=== PATIENT | female | born 1995 | race Caucasian/White ===

== ENCOUNTER 2018-08-01 12:12 | Observation (INO) ==
[2018-08-01] MEDS ORDERED: *HR* FentaNYL (PF) 100 MCG/2 ML VIAL IVP ONE ×2 (12:44→14:06)
[2018-08-01] MEDS ORDERED: Ondansetron 4 MG/2 ML VIAL IVP ONE (12:45)
--- NOTE | 2018-08-01 12:49 | Emergency Department Note ---
Disposition Clinical Impression: Acute appendicitis Qualifiers: Acute appendicitis type: unspecified acute appendicitis type Qualified Code(s): K35.80 - Unspecified acute appendicitis Disposition: Still a Patient Condition: Good Time of Disposition: 18:04 Abdominal Pain HPI - General Chief Complaint: ED Abdominal Pain Stated Complaint: ABD pain Time Seen by Provider: 08/01/18 12:18 Source: patient Nursing Notes Reviewed: Yes Vital Signs Reviewed: Yes - History of Present Illness HPI Narrative: Chief complaint of diffuse abdominal pain for 1 day. Has not progressed since onset last evening, no mitigating factors, positive nausea and vomiting but no diarrhea, no chest pain or shortness of breath, no sick contacts, this has never happened before, no previous abdominal surgeries or pregnancies. Pain Scale: 6 - Related Data Home Medications Medication Instructions Recorded Confirmed No Known Home Drugs 08/01/18 08/01/18 Allergies Allergy/AdvReac Type Severity Reaction Status Date / Time No Known Allergies Allergy Verified 08/01/18 16:01 All systems ED: reviewed and negative except as stated. Review of Systems: As Per HPI Abdominal Pain PMH - Past Medical History Medical history: Reports: no medical history Female Surgical History: Reports: no surgical history Psychiatric history: Reports: no psych history - Social History Smoking status: Never smoker Alcohol use: Reports: none Drug use: Reports: none Physical Exam - General Limitations: no limitations General appearance: alert - Eye Eye exam: Present: normal appearance, PERRL - Chest Chest inspection: Present: normal inspection, symmetric chest wall rise - Respiratory Respiratory exam: Present: normal lung sounds bilaterally - Cardiovascular Cardiovascular exam: Present: normal rhythm, tachycardia, normal heart sounds - Abdominal Exam Abdominal exam: Present: soft, tenderness, tenderness at McBurney's Point. Absent: Antonio's sign, scar Abdominal tenderness: Present: RLQ, diffuse - Extremities Exam Extremities exam: Present: normal inspection - Neurological Exam Neurological exam: Present: alert, oriented X3 - Skin Skin exam: Present: warm, dry Course Course Narrative: Patient with the chief complaint of abdominal pain, nausea, vomiting. Immediate concern is for gynecological or gastrointestinal etiology. We will order urine test. If that is negative we will proceed with CT of the abdomen to assess for possible appendicitis or other acute intestinal pathology. If urine is positive we will proceed with ultrasound of the abdomen. We are also ordering CBC, BMP and fentanyl and Zofran for pain and nausea control. Vital Signs Temperature 98.6 F 08/01/18 12:15 Pulse Rate 105 08/01/18 12:15 Respiratory Rate 18 08/01/18 12:15 Blood Pressure 123/77 08/01/18 12:15 O2 Sat by Pulse Oximetry 97 08/01/18 12:15 Temperature 98.6 F 08/01/18 12:15 Pulse Rate 92 08/01/18 16:03 Respiratory Rate 18 08/01/18 16:03 Blood Pressure 100/64 08/01/18 16:03 O2 Sat by Pulse Oximetry 98 08/01/18 16:03 Oxygen Delivery Oxygen Delivery Room Air Abdominal Pain - MDM Narrative Medical decision making narrative: Labs significant for urinary tract infection, otherwise negative. CT abdomen and pelvis demonstrating acute uncomplicated cholecystitis. This was discussed with the surgeon rehabilitation caseworker who came down to evaluate the patient. Dr. Bosch came down and evaluated the patient. His documentation indicates he will take the patient for surgery today. Patient is in stable condition and being managed by surgical team. - Lab Data Lab results reviewed: Yes I reviewed the patient's lab results. Result diagrams: 08/01/18 12:40 08/01/18 12:40 Lab Results 08/01/18 08/01/18 08/01/18 Range/Units 12:40 12:40 12:44 WBC 10.9 (4.3-11.1) K/mcL RBC 4.43 (3.82-4.97) M/mcL Hgb 14.4 (11.5-15.4) g/dL Hct 41.5 (35.3-44.9) % MCV 93.7 (83.0-100.0) fL MCH 32.5 (28.0-33.3) pg MCHC 34.7 (31.6-35.5) g/dL RDW 12.1 (11.5-14.5) % Plt Count 315 (140-400) K/mcL MPV 8.8 L (9.4-12.4) fL Immature Gran % 0.4 (0-4) % Seg Neutrophils % 78.9 % Lymphocytes % 15.6 % Monocytes % 4.5 % Eosinophils % 0.1 % Basophils % 0.5 % Neutrophils # 8.6 (1.6-8.9) K/mcL Lymphocytes # 1.7 (0.6-4.6) K/mcL Monocytes # 0.5 (0.0-1.3) K/mcL Eosinophils # 0.0 (0.0-0.6) K/mcL Basophils # 0.1 (0.0-0.2) K/mcL PT 13.4 H (9.4-12.1) Seconds INR 1.2 Sodium 135 L (136-145) mEq/L Potassium 3.5 (3.5-5.1) mEq/L Chloride 100 (98-107) mEq/L Carbon Dioxide 23 (23-29) mEq/L BUN 9 (6-20) mg/dL Creatinine 0.62 (0.60-1.20) mg/dL Est GFR ( Amer) > 60 (> 60) Est GFR (Non-Af Amer) > 60 (> 60) BUN/Creatinine Ratio 15 (6-26) Glucose 81 (70-105) mg/dL Calculated Osmolality 278 L (280-300) Calcium 9.6 (8.6-10.3) mg/dL Total Bilirubin 1.0 (0.3-1.0) mg/dL Direct Bilirubin 0.2 (0.0-0.2) mg/dL Indirect Bilirubin 0.8 (0.0-1.2) mg/dL AST 18 (13-39) Units/L ALT 16 (7-52) Units/L Alkaline Phosphatase 87 (34-104) Units/L Serum Total Protein 8.1 (6.4-8.9) g/dL Albumin 4.7 (3.5-5.7) g/dL Globulin 3.4 (2.4-3.5) g/dL Albumin/Globulin Ratio 1.4 (1.1-2.2) Urine Color (Yellow) Urine Clarity (Clear) Urine pH (5.0-8.0) pH Units Ur Specific [place] (1.010-1.025) Urine Protein (Neg-Trace) mg/dL Urine Glucose (UA) (Normal) mg/dL Urine Ketones (Negative) mg/dL Urine Blood (Negative) Urine Nitrite (Negative) Urine Bilirubin (Negative) Urine Urobilinogen (Normal) mg/dL Ur Leukocyte Esterase (Negative) Urine Microscopic RBC (0-3) per hpf Urine Microscopic WBC (0-3) per hpf Ur Squamous Epith Cells (None-Few) per lpf Urine Bacteria (None-Few) per hpf Ur Culture Indicated? (NO) Urine Test (Negative) 08/01/18 08/01/18 Range/Units 13:00 13:03 WBC (4.3-11.1) K/mcL RBC (3.82-4.97) M/mcL Hgb (11.5-15.4) g/dL Hct (35.3-44.9) % MCV (83.0-100.0) fL MCH (28.0-33.3) pg MCHC (31.6-35.5) g/dL RDW (11.5-14.5) % Plt Count (140-400) K/mcL MPV (9.4-12.4) fL Immature Gran % (0-4) % Seg Neutrophils % % Lymphocytes % % Monocytes % % Eosinophils % % Basophils % % Neutrophils # (1.6-8.9) K/mcL Lymphocytes # (0.6-4.6) K/mcL Monocytes # (0.0-1.3) K/mcL Eosinophils # (0.0-0.6) K/mcL Basophils # (0.0-0.2) K/mcL PT (9.4-12.1) Seconds INR Sodium (136-145) mEq/L Potassium (3.5-5.1) mEq/L Chloride (98-107) mEq/L Carbon Dioxide (23-29) mEq/L BUN (6-20) mg/dL Creatinine (0.60-1.20) mg/dL Est GFR ( Amer) (> 60) Est GFR (Non-Af Amer) (> 60) BUN/Creatinine Ratio (6-26) Glucose (70-105) mg/dL Calculated Osmolality (280-300) Calcium (8.6-10.3) mg/dL Total Bilirubin (0.3-1.0) mg/dL Direct Bilirubin (0.0-0.2) mg/dL Indirect Bilirubin (0.0-1.2) mg/dL AST (13-39) Units/L ALT (7-52) Units/L Alkaline Phosphatase (34-104) Units/L Serum Total Protein (6.4-8.9) g/dL Albumin (3.5-5.7) g/dL Globulin (2.4-3.5) g/dL Albumin/Globulin Ratio (1.1-2.2) Urine Color Dark Yellow (Yellow) Urine Clarity Cloudy A (Clear) Urine pH 5.5 (5.0-8.0) pH Units Ur Specific [place] > 1.030 H (1.010-1.025) Urine Protein 30 H (Neg-Trace) mg/dL Urine Glucose (UA) Normal (Normal) mg/dL Urine Ketones >=160 H (Negative) mg/dL Urine Blood Negative (Negative) Urine Nitrite Negative (Negative) Urine Bilirubin Small H (Negative) Urine Urobilinogen Normal (Normal) mg/dL Ur Leukocyte Esterase Negative (Negative) Urine Microscopic RBC 15-30 H (0-3) per hpf Urine Microscopic WBC 5-15 H (0-3) per hpf Ur Squamous Epith Cells Many H (None-Few) per lpf Urine Bacteria Moderate H (None-Few) per hpf Ur Culture Indicated? YES A (NO) Urine Test Negative (Negative) - Radiology Data Radiology results reviewed: Yes I reviewed the patient's radiology results. Abdomen/Pelvis CT 08/01/18 12:44 IMPRESSION: 1. Acute uncomplicated appendicitis. D/ / Galindo Wilson MD / Galindo Wilson MD Interpreting Provider: Galindo Wilson MD Attestation Statement - Attestation Attestation: I, Hiro Prasad DO, examined this patient [id number] and my medical decision-making was reviewed with Brett Garcia PGY-1, Resident Physician. I agree with the documented findings, disposition and treatment plan as described except to the extent set forth below. I personally supervised and was present for the gerber/critical portions of the procedures completed by the resident documented below. Please see my progress notes for details.
[2018-08-01 13:06] LABS: Basophils # 0.1 K/mcL (0.0-0.2); Basophils % 0.5 %; Eosinophils % 0.1 %; Hematocrit 41.5 % (35.3-44.9); Hemoglobin 14.4 g/dL (11.5-15.4); Immature Granulocytes % 0.4 % (0-4); Lymphocytes # 1.7 K/mcL (0.6-4.6); Lymphocytes % 15.6 %; Mean Corpuscular HGB Conc 34.7 g/dL (31.6-35.5); Mean Corpuscular Hemoglobin 32.5 pg (28.0-33.3); Mean Corpuscular Volume 93.7 fL (83.0-100.0); Mean Platelet Volume 8.8 fL (9.4-12.4); Monocytes # 0.5 K/mcL (0.0-1.3); Monocytes % 4.5 %; Neutrophils # 8.6 K/mcL (1.6-8.9); Platelet Count 315 K/mcL (140-400); Red Blood Count 4.43 M/mcL (3.82-4.97); Red Cell Distribution Width 12.1 % (11.5-14.5); Segmented Neutrophils % 78.9 %
[2018-08-01 13:10] LABS: INR 1.2; Prothrombin Time 13.4 Seconds (9.4-12.1)
[2018-08-01 13:13] LABS: Bilirubin,Urine Small (Negative); Blood,Urine Negative (Negative); Clarity,Urine Cloudy (Clear); Color,Urine Dark Yellow (Yellow); Glucose,Urine (UA) Normal (Normal); Ketones,Urine >=160 mg/dL (Negative); Leukocyte Esterase,Urine Negative (Negative); Nitrite,Urine Negative (Negative); PH,Urine 5.5 pH Units (5.0-8.0); Protein,Urine 30 mg/dL (Neg-Trace); Specific Gravity,Urine > 1.030 (1.010-1.025); Urobilinogen,Urine Normal (Normal)
[2018-08-01 13:15] LABS: Bacteria,Urine Moderate per hpf (None-Few); RBC,Urine 15-30 per hpf (0-3); Squamous Epithelial Cell,Urine Many per lpf (None-Few)
[2018-08-01 13:17] LABS: BUN/Creatinine Ratio 15 (6-26); Blood Urea Nitrogen 9 mg/dL (6-20); Calcium 9.6 mg/dL (8.6-10.3); Carbon Dioxide 23 mEq/L (23-29); Chloride 100 mEq/L (98-107); Glucose 81 mg/dL (70-105); Osmolality,Calculated 278 (280-300); Potassium 3.5 mEq/L (3.5-5.1); Sodium 135 mEq/L (136-145); eGFR For Non-African Americans > 60 (> 60)
[2018-08-01 13:29] LABS: Alanine Aminotransferase 16 Units/L (7-52); Albumin 4.7 g/dL (3.5-5.7); Albumin/Globulin Ratio 1.4 (1.1-2.2); Alkaline Phosphatase 87 Units/L (34-104); Aspartate Amino Transferase 18 Units/L (13-39); Bilirubin,Direct 0.2 mg/dL (0.0-0.2); Bilirubin,Indirect 0.8 mg/dL (0.0-1.2); Globulin 3.4 g/dL (2.4-3.5); Total Protein 8.1 g/dL (6.4-8.9)
[2018-08-01] MEDS ORDERED: Piperacillin/Tazobactam 3.375 GM in 0.9 % Sodium Chloride Mini Bag 100 ML IVPB ONE (14:04)
[2018-08-01] MEDS ORDERED: 0.9 % Sodium Chloride 1,000 ML IVC ONE (14:12)
--- NOTE | 2018-08-01 14:12 | Emergency Department Note ---
Disposition Clinical Impression: Acute appendicitis Disposition: Admitted As Inpatient Condition: Good Referrals: NONE,PCP [Primary Care Provider] - Forms: ED Satisfaction Letter, Work/School Release Time of Disposition: 14:52 General Adult HPI - General Chief complaint: ED Abdominal Pain Stated complaint: ABD pain Time Seen by Provider: 08/01/18 12:18 Source: patient Limitations: no limitations - History of Present Illness Pain Scale: 6 - Related Data Previous Rx's Medication Instructions Recorded Ondansetron ODT [Zofran ODT] 4 mg SL Q8HR PRN #12 tab.rapdis 01/23/18 Allergies Allergy/AdvReac Type Severity Reaction Status Date / Time No Known Allergies Allergy Verified 01/20/18 11:10 Past Medical History - Past Medical History Medical history: Reports: no medical history Surgical history: Reports: no surgical history Psychiatric history: Reports: no psych history - Social History Smoking Status: Never smoker Smokeless Tobacco Status: No Alcohol use: Reports: none Drug use: Reports: none Physical Exam - General Limitations: no limitations General appearance: alert Course Vital Signs Temperature 98.6 F 08/01/18 12:15 Pulse Rate 105 08/01/18 12:15 Respiratory Rate 18 08/01/18 12:15 Blood Pressure 123/77 08/01/18 12:15 O2 Sat by Pulse Oximetry 97 08/01/18 12:15 Temperature 98.6 F 08/01/18 12:15 Pulse Rate 88 08/01/18 14:24 Respiratory Rate 18 08/01/18 14:24 Blood Pressure 115/78 08/01/18 14:24 O2 Sat by Pulse Oximetry 97 08/01/18 14:24 Oxygen Delivery Oxygen Delivery Room Air Medical Decision Making - Lab Data Result diagrams: 08/01/18 12:40 08/01/18 12:40 Lab Results 08/01/18 08/01/18 08/01/18 Range/Units 12:40 12:40 12:44 WBC 10.9 (4.3-11.1) K/mcL RBC 4.43 (3.82-4.97) M/mcL Hgb 14.4 (11.5-15.4) g/dL Hct 41.5 (35.3-44.9) % MCV 93.7 (83.0-100.0) fL MCH 32.5 (28.0-33.3) pg MCHC 34.7 (31.6-35.5) g/dL RDW 12.1 (11.5-14.5) % Plt Count 315 (140-400) K/mcL MPV 8.8 L (9.4-12.4) fL Immature Gran % 0.4 (0-4) % Seg Neutrophils % 78.9 % Lymphocytes % 15.6 % Monocytes % 4.5 % Eosinophils % 0.1 % Basophils % 0.5 % Neutrophils # 8.6 (1.6-8.9) K/mcL Lymphocytes # 1.7 (0.6-4.6) K/mcL Monocytes # 0.5 (0.0-1.3) K/mcL Eosinophils # 0.0 (0.0-0.6) K/mcL Basophils # 0.1 (0.0-0.2) K/mcL PT 13.4 H (9.4-12.1) Seconds INR 1.2 Sodium 135 L (136-145) mEq/L Potassium 3.5 (3.5-5.1) mEq/L Chloride 100 (98-107) mEq/L Carbon Dioxide 23 (23-29) mEq/L BUN 9 (6-20) mg/dL Creatinine 0.62 (0.60-1.20) mg/dL Est GFR ( Amer) > 60 (> 60) Est GFR (Non-Af Amer) > 60 (> 60) BUN/Creatinine Ratio 15 (6-26) Glucose 81 (70-105) mg/dL Calculated Osmolality 278 L (280-300) Calcium 9.6 (8.6-10.3) mg/dL Total Bilirubin 1.0 (0.3-1.0) mg/dL Direct Bilirubin 0.2 (0.0-0.2) mg/dL Indirect Bilirubin 0.8 (0.0-1.2) mg/dL AST 18 (13-39) Units/L ALT 16 (7-52) Units/L Alkaline Phosphatase 87 (34-104) Units/L Serum Total Protein 8.1 (6.4-8.9) g/dL Albumin 4.7 (3.5-5.7) g/dL Globulin 3.4 (2.4-3.5) g/dL Albumin/Globulin Ratio 1.4 (1.1-2.2) Urine Color (Yellow) Urine Clarity (Clear) Urine pH (5.0-8.0) pH Units Ur Specific [place] (1.010-1.025) Urine Protein (Neg-Trace) mg/dL Urine Glucose (UA) (Normal) mg/dL Urine Ketones (Negative) mg/dL Urine Blood (Negative) Urine Nitrite (Negative) Urine Bilirubin (Negative) Urine Urobilinogen (Normal) mg/dL Ur Leukocyte Esterase (Negative) Urine Microscopic RBC (0-3) per hpf Urine Microscopic WBC (0-3) per hpf Ur Squamous Epith Cells (None-Few) per lpf Urine Bacteria (None-Few) per hpf Ur Culture Indicated? (NO) Urine Test (Negative) 08/01/18 08/01/18 Range/Units 13:00 13:03 WBC (4.3-11.1) K/mcL RBC (3.82-4.97) M/mcL Hgb (11.5-15.4) g/dL Hct (35.3-44.9) % MCV (83.0-100.0) fL MCH (28.0-33.3) pg MCHC (31.6-35.5) g/dL RDW (11.5-14.5) % Plt Count (140-400) K/mcL MPV (9.4-12.4) fL Immature Gran % (0-4) % Seg Neutrophils % % Lymphocytes % % Monocytes % % Eosinophils % % Basophils % % Neutrophils # (1.6-8.9) K/mcL Lymphocytes # (0.6-4.6) K/mcL Monocytes # (0.0-1.3) K/mcL Eosinophils # (0.0-0.6) K/mcL Basophils # (0.0-0.2) K/mcL PT (9.4-12.1) Seconds INR Sodium (136-145) mEq/L Potassium (3.5-5.1) mEq/L Chloride (98-107) mEq/L Carbon Dioxide (23-29) mEq/L BUN (6-20) mg/dL Creatinine (0.60-1.20) mg/dL Est GFR ( Amer) (> 60) Est GFR (Non-Af Amer) (> 60) BUN/Creatinine Ratio (6-26) Glucose (70-105) mg/dL Calculated Osmolality (280-300) Calcium (8.6-10.3) mg/dL Total Bilirubin (0.3-1.0) mg/dL Direct Bilirubin (0.0-0.2) mg/dL Indirect Bilirubin (0.0-1.2) mg/dL AST (13-39) Units/L ALT (7-52) Units/L Alkaline Phosphatase (34-104) Units/L Serum Total Protein (6.4-8.9) g/dL Albumin (3.5-5.7) g/dL Globulin (2.4-3.5) g/dL Albumin/Globulin Ratio (1.1-2.2) Urine Color Dark Yellow (Yellow) Urine Clarity Cloudy A (Clear) Urine pH 5.5 (5.0-8.0) pH Units Ur Specific [place] > 1.030 H (1.010-1.025) Urine Protein 30 H (Neg-Trace) mg/dL Urine Glucose (UA) Normal (Normal) mg/dL Urine Ketones >=160 H (Negative) mg/dL Urine Blood Negative (Negative) Urine Nitrite Negative (Negative) Urine Bilirubin Small H (Negative) Urine Urobilinogen Normal (Normal) mg/dL Ur Leukocyte Esterase Negative (Negative) Urine Microscopic RBC 15-30 H (0-3) per hpf Urine Microscopic WBC 5-15 H (0-3) per hpf Ur Squamous Epith Cells Many H (None-Few) per lpf Urine Bacteria Moderate H (None-Few) per hpf Ur Culture Indicated? YES A (NO) Urine Test Negative (Negative) Attestation Statement - Attestation Attestation: I, Hiro Prasad DO, examined this patient [id number] and my medical decision-making was reviewed with Brett Garcia PGY-1, Resident Physician. I agree with the documented findings, disposition and treatment plan as described except to the extent set forth below. I personally supervised and was present for the gerber/critical portions of the procedures completed by the resident documented below. Please see my progress notes for details. 22-year-old female presents to the emergency room for evaluation of abdominal pain. Symptoms started last night. Patient denies any other symptoms prior to these events here at this time. She is a persistent nausea and vomiting and diffuse abdominal pain. She denies any fevers or chills. She has not had any headache or vision change. She has not had any diarrhea. Denies any falls trauma or injury. She discloses that she is not sexually active at this time. She has no concern for being . She is Bahai. Vital signs reviewed and are stable. Patient is alert she is oriented. Lungs are clear heart is regular. Abdomen is soft but she does have significant tenderness in the lower abdomen that isolated to the right lower quadrant at this time. She denies any vaginal discharge bleeding or urinary symptoms. Extremities are normal. She denies any history of allergies or other medical conditions. Concern is noted for appendicitis versus other intra-abdominal related etiology. Urinalysis and test will be collected. She has no specific history of ovarian cyst that she knows of. She is never had abnormal menses or complaints at that time. Because of that CT imaging of the abdomen along with CBC chemistry and blood cultures along with coagulation studies will be ordered. Antibiotic regimen will be started dependent upon the findings on the workup. Disposition to be determined. See detailed documentation the physical exam, medical intervention, medical decision-making and disposition in the resident physician's note. No critical care pad the patient's treatment course at this time. 1400 CT imaging the abdomen is read as acute uncomplicated appendicitis. Patient does not have a white count her vitals remain stable. Fluids and antibiotics have been ordered at this time to cover against urinary tract infection as well as intra-abdominal related issues. On-call surgeon will be contacted for surgical intervention. 1445 Patient was evaluated by surgery here in the emergency department. Antibiotics have been started. Patient is going to go to the surgical suite for intervention acute appendicitis. No other concerns or issues noted this time. Patient will be monitored here in the emergency department until the admission process is completed.
--- NOTE | 2018-08-01 15:07 | Acute Care Surgery H&P ---
<Ab Lloyd N - Last Filed: 08/01/18 15:05> Date of Encounter: 08/01/18 Time of Encounter: 15:05 Assessment and Plan (1) Acute appendicitis Current Visit: Yes Status: Acute - 22-year-old female with one-day history of abdominal pain, nausea, or vomiting. Pain was initially generalized but is now located in the right lower quadrant. On physical exam she has positive McBurney's and Rovsing's. CT abdomen and pelvis confirms acute uncomplicated appendicitis. Patient denies any prior history of abdominal surgeries. Currently not on any medications. No known drug allergies. Urine test was negative. -Plan for urgent laparoscopic appendectomy today -We will admit patient to the acute care surgery service Qualifiers: Acute appendicitis type: unspecified acute appendicitis type Qualified Code(s): K35.80 - Unspecified acute appendicitis History of Present Illness Chief complaint: abdominal pain HPI: Ms. Worrell is a 22 year old female who presents to the emergency department for 1 day history of abdominal pain, nausea, vomiting. Patient reports that she ate pizza for dinner last night and went to sleep, she was woken up from her sleep due to diffuse generalized abdominal pain. She describes it pain is severe in nature and associated with nausea and 2 episodes of vomiting prompted the lucero ent to visit the emergency department. Upon arrival to the emergency department patient was tachycardic but otherwise hemodynamically stable. Her lab workup was generally unremarkable, but a CT abdomen and pelvis showed a dilated appendix measuring 1.1 cm with an appendicolith present at the base of the appendix and mild periappendiceal inflammation consistent with acute uncomplicated appendicitis. Patient is currently resting comfortably in bed, her pain is well-controlled with medication. She is not actively nauseous or vomiting. She does have tenderness to palpation of the right lower quadrant with guarding present. Past Med Surg Social Fam HX - Past Medical History Medical history: no medical history Psychiatric history: no psych history - Past Surgical History Surgical History: no surgical history - Social History Smoking Status: Never smoker Smokeless Tobacco Status: No Alcohol use: none Drug use: none Medications and Allergies Ondansetron ODT [Zofran ODT] 4 mg SL Q8HR PRN #12 tab.rapdis 01/23/18 [Rx] Allergy/AdvReac Type Severity Reaction Status Date / Time No Known Allergies Allergy Verified 01/20/18 11:10 Review of Systems All systems PM: The remainder of the systems were reviewed and are negative - Constitutional no chills, no fever(s) - Cardiovascular no chest pain - Respiratory no dyspnea - Gastrointestinal abdominal pain, nausea, vomiting, no constipation, no diarrhea, no hematochezia, no melena - Genitourinary Genitourinary: no dysuria - Musculoskeletal no arthralgias - Integumentary no rash General Surgery Exam Initial Vital Signs Temp Pulse Resp BP Pulse Ox 98.6 F 105 18 123/77 97 08/01/18 12:15 08/01/18 12:15 08/01/18 12:15 08/01/18 12:15 08/01/18 12:15 - General physical appearance well developed, well nourished - Eyes PERRL, normal ocular movement - ENT normal pinna, normal nares - Neck trachea midline, no venous distension - Respiratory normal expansion, normal respiratory effort - Cardiovascular Cardiovascular exam: Present: RRR. Absent: murmurs - Abdomen Abdomen general surgery: Present: bowel sounds present, tender, guarding Abdominal Tenderness: Present: RLQ - Integumentary Integumentary general surgery: Present: warm and dry - Musculoskeletal Present: normal posture - Psychiatric Psychiatric general surgery: Present: A&Ox3, appropriate Results - Labs 08/01/18 12:40 08/01/18 12:40 Abnormal lab results MPV 8.8 fL (9.4-12.4) L 08/01/18 12:40 PT 13.4 Seconds (9.4-12.1) H 08/01/18 12:44 Sodium 135 mEq/L (136-145) L 08/01/18 12:40 278 (280-300) L 08/01/18 12:40 Cloudy (Clear) A 08/01/18 13:03 Ur Specific [place] > 1.030 (1.010-1.025) H 08/01/18 13:03 30 mg/dL (Neg-Trace) H 08/01/18 13:03 >=160 mg/dL (Negative) H 08/01/18 13:03 Small (Negative) H 08/01/18 13:03 15-30 per hpf (0-3) H 08/01/18 13:03 5-15 per hpf (0-3) H 08/01/18 13:03 Ur Squamous Epith Cells Many per lpf (None-Few) H 08/01/18 13:03 Moderate per hpf (None-Few) H 08/01/18 13:03 Ur Culture Indicated? YES (NO) A 08/01/18 13:03 Diabetes panel 08/01/18 Range/Units 12:40 Sodium 135 L (136-145) mEq/L Potassium 3.5 (3.5-5.1) mEq/L Chloride 100 (98-107) mEq/L Carbon Dioxide 23 (23-29) mEq/L BUN 9 (6-20) mg/dL Creatinine 0.62 (0.60-1.20) mg/dL Glucose 81 (70-105) mg/dL Calcium 9.6 (8.6-10.3) mg/dL AST 18 (13-39) Units/L ALT 16 (7-52) Units/L Alkaline Phosphatase 87 (34-104) Units/L Albumin 4.7 (3.5-5.7) g/dL Calcium panel 08/01/18 Range/Units 12:40 Calcium 9.6 (8.6-10.3) mg/dL Albumin 4.7 (3.5-5.7) g/dL Pituitary panel 08/01/18 Range/Units 12:40 Sodium 135 L (136-145) mEq/L Potassium 3.5 (3.5-5.1) mEq/L Chloride 100 (98-107) mEq/L Carbon Dioxide 23 (23-29) mEq/L BUN 9 (6-20) mg/dL Creatinine 0.62 (0.60-1.20) mg/dL Glucose 81 (70-105) mg/dL Calcium 9.6 (8.6-10.3) mg/dL Adrenal panel 08/01/18 Range/Units 12:40 Sodium 135 L (136-145) mEq/L Potassium 3.5 (3.5-5.1) mEq/L Chloride 100 (98-107) mEq/L Carbon Dioxide 23 (23-29) mEq/L BUN 9 (6-20) mg/dL Creatinine 0.62 (0.60-1.20) mg/dL Glucose 81 (70-105) mg/dL Calcium 9.6 (8.6-10.3) mg/dL Total Bilirubin 1.0 (0.3-1.0) mg/dL AST 18 (13-39) Units/L ALT 16 (7-52) Units/L Alkaline Phosphatase 87 (34-104) Units/L Albumin 4.7 (3.5-5.7) g/dL All other labs normal. <Sean Bosch M - Last Filed: 08/01/18 15:16> Date of Encounter: 08/01/18 History of Present Illness HPI: Ms. Worrell is a 22 year old female Review of Systems All systems PM: The remainder of the systems were reviewed and are negative General Surgery Exam Initial Vital Signs Temp Pulse Resp BP Pulse Ox 98.6 F 105 18 123/77 97 08/01/18 12:15 08/01/18 12:15 08/01/18 12:15 08/01/18 12:15 08/01/18 12:15 Results - Labs 08/01/18 12:40 08/01/18 12:40 Abnormal lab results MPV 8.8 fL (9.4-12.4) L 08/01/18 12:40 PT 13.4 Seconds (9.4-12.1) H 08/01/18 12:44 Sodium 135 mEq/L (136-145) L 08/01/18 12:40 278 (280-300) L 08/01/18 12:40 Cloudy (Clear) A 08/01/18 13:03 Ur Specific [place] > 1.030 (1.010-1.025) H 08/01/18 13:03 30 mg/dL (Neg-Trace) H 08/01/18 13:03 >=160 mg/dL (Negative) H 08/01/18 13:03 Small (Negative) H 08/01/18 13:03 15-30 per hpf (0-3) H 08/01/18 13:03 5-15 per hpf (0-3) H 08/01/18 13:03 Ur Squamous Epith Cells Many per lpf (None-Few) H 08/01/18 13:03 Moderate per hpf (None-Few) H 08/01/18 13:03 Ur Culture Indicated? YES (NO) A 08/01/18 13:03 Diabetes panel 08/01/18 Range/Units 12:40 Sodium 135 L (136-145) mEq/L Potassium 3.5 (3.5-5.1) mEq/L Chloride 100 (98-107) mEq/L Carbon Dioxide 23 (23-29) mEq/L BUN 9 (6-20) mg/dL Creatinine 0.62 (0.60-1.20) mg/dL Glucose 81 (70-105) mg/dL Calcium 9.6 (8.6-10.3) mg/dL AST 18 (13-39) Units/L ALT 16 (7-52) Units/L Alkaline Phosphatase 87 (34-104) Units/L Albumin 4.7 (3.5-5.7) g/dL Calcium panel 08/01/18 Range/Units 12:40 Calcium 9.6 (8.6-10.3) mg/dL Albumin 4.7 (3.5-5.7) g/dL Pituitary panel 08/01/18 Range/Units 12:40 Sodium 135 L (136-145) mEq/L Potassium 3.5 (3.5-5.1) mEq/L Chloride 100 (98-107) mEq/L Carbon Dioxide 23 (23-29) mEq/L BUN 9 (6-20) mg/dL Creatinine 0.62 (0.60-1.20) mg/dL Glucose 81 (70-105) mg/dL Calcium 9.6 (8.6-10.3) mg/dL Adrenal panel 08/01/18 Range/Units 12:40 Sodium 135 L (136-145) mEq/L Potassium 3.5 (3.5-5.1) mEq/L Chloride 100 (98-107) mEq/L Carbon Dioxide 23 (23-29) mEq/L BUN 9 (6-20) mg/dL Creatinine 0.62 (0.60-1.20) mg/dL Glucose 81 (70-105) mg/dL Calcium 9.6 (8.6-10.3) mg/dL Total Bilirubin 1.0 (0.3-1.0) mg/dL AST 18 (13-39) Units/L ALT 16 (7-52) Units/L Alkaline Phosphatase 87 (34-104) Units/L Albumin 4.7 (3.5-5.7) g/dL All other labs normal. - Attending Attestation I examined this patient and my medical decision-making was reviewed with the Resident Physician. I agree with the documented findings, disposition and treatment plan as described except to the extent set forth below. I reviewed the above assessment and evaluation with the resident and agree with the above plan. Patient started having right lower quadrant abdominal pain starting yesterday afternoon/evening. She admits to nausea and vomiting but denies any diarrhea or constipation. The pain is sharp and constant and nonradiating. She is tender to palpation. CT scan was personally reviewed by me (images and report) which demonstrates evidence of appendicitis without perforation. We will plan for laparoscopic appendectomy today. Risks and benefits have been discussed with the patient and family members and they agree to the above plan.
[2018-08-01] MEDS ORDERED: Naloxone 0.4 MG/ML INJ IVP PRN (15:10)
[2018-08-01] MEDS ORDERED: Ondansetron ODT 4 MG TAB.RAPDIS SL PRN (15:10)
[2018-08-01] MEDS ORDERED: OXYCODONE Oral CONC 10 MG/0.5 ML ORAL.SYG SL PRN (15:12)
[2018-08-01] MEDS ORDERED: *HR* HYDROmorphone (PF) 1 MG/ML SYRINGE IVP ONE (15:54)
[2018-08-01] MEDS ORDERED: Bupivacaine/EPI 1:200k 0.5%PF 30 ML VIAL ONE (18:03)
[2018-08-01] MEDS ORDERED: *HR* OxyCODONE Immed Rel 5 MG TABLET PO PRN (18:22)
[2018-08-01] MEDS ORDERED: *HR* Promethazine 25 MG/ML VIAL IVP PRN (18:22)
--- NOTE | 2018-08-01 18:22 | Anesthesia Evaluation PreOp ---
Date of Encounter: 08/01/18 Time of Encounter: 18:21 - Past History Planned Operation: Lap appendectomy Cardiac History: Denies any Significant Hx Pulmonary History: Denies Any Significant HX CLOTH BOLT BANDER History: Denies Any Significant HX Other Medical History: Denies Any Significant HX Anesthesia History: No Prior Anesthetic Complications, Past Anesthesia (L-ankle ORIF) Alcohol Use: none Drug use: none Medications and Allergies No Known Home Drugs 08/01/18 [History] Allergy/AdvReac Type Severity Reaction Status Date / Time No Known Allergies Allergy Verified 08/01/18 16:01 - Meds/Allergy Pre-op Review Medications Reviewed: Yes Allergies Reviewed: Yes Beta Blockers on Current Med List: No Anesthesia Results - Labs 08/01/18 12:40 08/01/18 12:40 Anesthesia Exam Last Vital Signs Temp 98.6 F 08/01/18 12:15 Pulse 92 08/01/18 16:03 Resp 18 08/01/18 16:03 BP 100/64 08/01/18 16:03 Pulse Ox 98 08/01/18 16:03 Weight: 73 kg NPO (# of Hours): > 8 hrs - HEENT Pupil (Motor): Pupils equal, EOMI Mallampati: III Teeth: Normal Oral Opening: Greater than 3 - CLOTH BOLT BANDER LOC: Oriented - Cardiac Rhythm: Regular Murmur: None - Pulmonary Breath Sounds: bilateral Clear Respiratory Effort: Symmetrical Anesthesia Assess/Plan ASA Score: 1 Level of consciousness: Cooperative Anesthetic Plan: General Monitoring Plan: Standard Monitors Recovery Plan: PACU
[2018-08-01] MEDS ORDERED: *HR* Propofol 200 MG/20 ML VIAL IVP ONE (18:27)
[2018-08-01] MEDS ORDERED: *HR* Midazolam HCl 2 MG/2 ML VIAL ONE (18:27)
[2018-08-01] MEDS ORDERED: *HR* FentaNYL (PF) 100 MCG/2 ML VIAL ONE (18:27)
[2018-08-01] MEDS ORDERED: Lidocaine -MPF 2% 2 ML VIAL ONE (18:28)
[2018-08-01] MEDS ORDERED: *HR* Rocuronium Bromide 50 MG/5 ML VIAL ONE (18:29)
[2018-08-01] MEDS ORDERED: *HR* Succinylcholine 200 MG/10 ML VIAL IVP ONE (18:29)
[2018-08-01] MEDS ORDERED: CefOXitin 2,000 MG VIAL ONE (18:35)
[2018-08-01] MEDS ORDERED: Acetaminophen IV 1,000 MG/100 ML INFUS..BTL ONE (18:38)
[2018-08-01] MEDS ORDERED: Ondansetron 4 MG/2 ML VIAL ONE (18:53)
[2018-08-01] MEDS ORDERED: Dexamethasone 4 MG/ML VIAL ONE (18:53)
[2018-08-01] MEDS ORDERED: Neostigmine Methylsulfate 3 MG/3 ML SYRINGE ONE ×2 (19:24→19:30)
--- NOTE | 2018-08-01 19:25 | Operative Note ---
Date of procedure: 08/01/18 Pre-op diagnosis: Acute appendicitis Post-op diagnosis: same Procedure: Laparoscopic appendectomy Anesthesia: PER Surgeon: Sean Bosch Was there an assistant office manager present: No Rail Specialist Other: DESIREE Briggs Estimated blood loss (cc): 6 Specimen: appendix Condition: stable Disposition: PACU Procedure in Detail: Date of surgery: 08/01/18 After probably did not find the patient, the patient was brought to the operatin g room and placed in supine position. After proper IV sedation was achieved followed by general endotracheal intubation, the patient's abdomen was prepped and draped in normal sterile fashion. A timeout was performed noting the patient's name and type of procedure to be performed. Half percent Marcaine with epinephrine was used to infiltrate the epidermal, dermal, and subcutaneous tissue in the infraumbilical region. An 11 blade scalpel was then used to make an incision in this area down to the rectus fascia which was also incised. Once the abdomen was entered a 12 mm port was placed through the port and a laparoscopic camera was placed through the port which showed no injury to the intra-abdominal organs upon entry. The abdomen was insufflated with carbon dioxide and a suprapubic 5 mm port and a left lower quadrant 5 mm port were then placed under direct camera visualization after both of these areas were first infiltrated with half percent Marcaine solution. The patient was placed in a Trendelenburg position with a slight tilt to the left side. The right lower quadrant was examined and the appendix appeared to be somewhat thickened with some slight hyperemia consistent with acute appendicitis. The appendix was grasped with a nontraumatic grasper retracted superiorly. The mesentery and the base of the appendix were /dissected with a [place] dissector. A laparoscopic EBENEZER stapler was then used to transect across the base of the appendix and the mesentery. The appendix was then removed from the abdomen via an Endobag. Reinspection of the right lower heri drant showed some mild oozing along the staple line which was hemostatically controlled with Bovie cauterization. The right lower quadrant and pelvis were then irrigated with normal saline solution and reinspection of the staple line showed maintenance of hemostasis. All ports were then removed from the abdomen after the abdomen was desufflated. The rectus fascia for the subumbilical umbilical incision was reapproximated with a [id number] 0 Vicryl suture. The subcutaneous tissue was reapproximated with a 3-0 Vicryl suture and the epidermal and dermal layers for the remaining incisions were closed with 4-0 Monocryl sutures. Needle, sponge, and instrument counts were correct 2 and the incisions were covered with Steri- Strips and Band-Aids. The patient was aroused from IV sedation, extubated in the operating room without complication, and transported to the recovery room in stable condition.
--- NOTE | 2018-08-01 20:07 | Anesthesia Evaluation Post Op ---
Date of Encounter: 08/01/18 Time of Encounter: 20:06 - Vital Signs Vital Signs: Vital Signs/O2 Sat, Most Current Temp Pulse Resp BP Pulse Ox 97.5 F L 76 16 117/71 100 08/01/18 19:36 08/01/18 19:56 08/01/18 19:56 08/01/18 19:56 08/01/18 19:56 - Lungs Lungs: Clear Ascult./Percussion - Airway Airway: Non-obstructed - Cardiovascular Regular Rate - Mental Status Mental Status: Alert & Oriented, Answers Appropriately - Pain Pain Scale: 0 Pain Scale used: Numeric (1 - 10) - Nausea Vomiting Nausea Vomiting: Not Present - Hydration Hydration: Ice chips, Has not voided - Discharge PostOp Status: Transfer Patient to floor
[2018-08-01] MEDS ORDERED: *HR* OxyCODONE/APAP 5/325 TABLET PO PRN (20:14)
[2018-08-01] MEDS ORDERED: 0.9 % Sodium Chloride 1,000 ML IVC SCH (20:14)
[2018-08-01] MEDS ORDERED: MORPHINE SUL Oral CONC 10 MG/0.5 ML ORAL.SYG SL PRN (20:14)
[2018-08-01] MEDS ORDERED: Ondansetron 4 MG/2 ML VIAL IVP PRN (20:14)
[2018-08-01] MEDS: Ketorolac 30 MG/ML VIAL IVP SCH (23:44)
[2018-08-02 04:03] VITALS: BP 100/62
[2018-08-02 04:04] LABS: Hematocrit 36.5 % (35.3-44.9); Hemoglobin 12.1 g/dL (11.5-15.4); Immature Granulocytes % 0.3 % (0-4); Lymphocytes # 0.4 K/mcL (0.6-4.6); Lymphocytes % 5.6 %; Mean Corpuscular HGB Conc 33.2 g/dL (31.6-35.5); Mean Corpuscular Hemoglobin 31.9 pg (28.0-33.3); Mean Corpuscular Volume 96.3 fL (83.0-100.0); Mean Platelet Volume 9.1 fL (9.4-12.4); Monocytes # 0.1 K/mcL (0.0-1.3); Monocytes % 1.7 %; Neutrophils # 6.5 K/mcL (1.6-8.9); Platelet Count 256 K/mcL (140-400); Red Blood Count 3.79 M/mcL (3.82-4.97); Segmented Neutrophils % 92.4 %
[2018-08-02] MEDS: Ketorolac 30 MG/ML VIAL IVP SCH (05:18)
[2018-08-02] MEDS ORDERED: *HR* Heparin 5,000 UNIT/ML VIAL SQ SCH (06:00)
--- NOTE | 2018-08-02 08:25 | Discharge Summary ---
<Ab Lloyd - Last Filed: 08/02/18 08:21> - NOTES TO OUTPATIENT PROVIDER Notes to Outpatient Provider: 22-year-old female admitted to the hospital with abdominal pain, nausea and vomiting. Underwent CT scan which showed acute non- complicated appendicitis. Patient underwent urgent laparoscopic appendectomy without complication. Discharged on POD #1 to follow-up with her PCP and follow-up with acute care surgery in 2 weeks as well. Orders not resulted at time of discharge: Pending orders 08/01/18 13:03 Culture,Urine [RM] Stat 08/01/18 14:24 Culture,Blood [BC] Stat 08/01/18 19:26 Surgical Pathology [PTH] Routine Date of Encounter: 08/02/18 Time of Encounter: 08:21 - Discharge Diagnosis (1) Acute appendicitis Priority: Primary Status: Acute Qualifiers: Acute appendicitis type: unspecified acute appendicitis type Qualified Code(s): K35.80 - Unspecified acute appendicitis General Surgery Exam Initial Vital Signs Temp Pulse Resp BP Pulse Ox 98.6 F 105 18 123/77 97 08/01/18 12:15 08/01/18 12:15 08/01/18 12:15 08/01/18 12:15 08/01/18 12:15 - General physical appearance well developed, well nourished - Eyes PERRL, normal ocular movement - ENT normal pinna, normal nares - Neck trachea midline, no venous distension - Respiratory normal expansion, normal respiratory effort - Cardiovascular Cardiovascular exam: Present: RRR - Abdomen Abdomen general surgery: Present: bowel sounds present, soft, tender (appropriate postsurgical tenderness) - Integumentary Integumentary general surgery: Present: warm and dry - Musculoskeletal Present: normal posture - Psychiatric Psychiatric general surgery: Present: A&Ox3 - Hospital Course Hospital course: Ms. Worrell is a 22-year-old female admitted to the hospital with abdominal pain, nausea and vomiting. On arrival she was tachycardic, otherwise hemodynamically stable. Rest of vital signs stable. Lab workup generally unremarkable. CT abdomen and pelvis showed acute non-complicated appendicitis. Patient underwent urgent laparoscopic appendectomy without complication. Discharged on POD #1 to follow-up with her PCP and follow-up with acute care surgery in 2 weeks as well. Will be discharged with 3 days Augmentin. - Time Spent with Patient Total time spent providing and/or coordinating discharge services: - Discharge Medications Prescriptions: New Amoxicillin/Clavulanate [Augmentin] 875 mg PO BIDWM 3 Days #6 tablet Oxycodone HCl/Acetaminophen [Percocet 5-325 mg Tablet] 1 each PO Q6H PRN 7 Days #28 tablet PRN Reason: Moderate Pain Home Medications: Amoxicillin/Clavulanate [Augmentin] 875 mg PO BIDWM 3 Days #6 tablet 08/02/18 [Rx] Oxycodone HCl/Acetaminophen [Percocet 5-325 mg Tablet] 1 each PO Q6H PRN 7 Days #28 tablet 08/02/18 [Rx] Allergies/Adverse Reactions: Allergy/AdvReac Type Severity Reaction Status Date / Time No Known Allergies Allergy Verified 08/01/18 16:01 Date of admission: 08/01/18 15:03 Primary care physician: PCP NONE Discharging clinician: Ab Lloyd Anticipated date of discharge: 08/02/18 Labs on day of discharge: Labs from last 24 hours 08/02/18 08/01/18 08/01/18 03:27 13:03 13:00 WBC 7.0 RBC 3.79 L Hgb 12.1 D Hct 36.5 MCV 96.3 MCH 31.9 MCHC 33.2 RDW 12.0 Plt Count 256 MPV 9.1 L Immature Gran % 0.3 Seg Neutrophils % 92.4 Lymphocytes % 5.6 Monocytes % 1.7 Eosinophils % 0.0 Basophils % 0.0 Neutrophils # 6.5 Lymphocytes # 0.4 L Monocytes # 0.1 Eosinophils # 0.0 Basophils # 0.0 PT INR Sodium Potassium Chloride Carbon Dioxide BUN Creatinine Est GFR ( Amer) Est GFR (Non-Af Amer) BUN/Creatinine Ratio Glucose Calculated Osmolality Calcium Total Bilirubin Direct Bilirubin Indirect Bilirubin AST ALT Alkaline Phosphatase Serum Total Protein Albumin Globulin Albumin/Globulin Ratio Urine Color Dark Yellow Urine Clarity Cloudy A Urine pH 5.5 Ur Specific [place] > 1.030 H Urine Protein 30 H Urine Glucose (UA) Normal Urine Ketones >=160 H Urine Blood Negative Urine Nitrite Negative Urine Bilirubin Small H Urine Urobilinogen Normal Ur Leukocyte Esterase Negative Urine Microscopic RBC 15-30 H Urine Microscopic WBC 5-15 H Ur Squamous Epith Cells Many H Urine Bacteria Moderate H Ur Culture Indicated? YES A Urine Test Negative 08/01/18 08/01/18 08/01/18 12:44 12:40 12:40 WBC 10.9 RBC 4.43 Hgb 14.4 Hct 41.5 MCV 93.7 MCH 32.5 MCHC 34.7 RDW 12.1 Plt Count 315 MPV 8.8 L Immature Gran % 0.4 Seg Neutrophils % 78.9 Lymphocytes % 15.6 Monocytes % 4.5 Eosinophils % 0.1 Basophils % 0.5 Neutrophils # 8.6 Lymphocytes # 1.7 Monocytes # 0.5 Eosinophils # 0.0 Basophils # 0.1 PT 13.4 H INR 1.2 Sodium 135 L Potassium 3.5 Chloride 100 Carbon Dioxide 23 BUN 9 Creatinine 0.62 Est GFR ( Amer) > 60 Est GFR (Non-Af Amer) > 60 BUN/Creatinine Ratio 15 Glucose 81 Calculated Osmolality 278 L Calcium 9.6 Total Bilirubin 1.0 Direct Bilirubin 0.2 Indirect Bilirubin 0.8 AST 18 ALT 16 Alkaline Phosphatase 87 Serum Total Protein 8.1 Albumin 4.7 Globulin 3.4 Albumin/Globulin Ratio 1.4 Urine Color Urine Clarity Urine pH Ur Specific [place] Urine Protein Urine Glucose (UA) Urine Ketones Urine Blood Urine Nitrite Urine Bilirubin Urine Urobilinogen Ur Leukocyte Esterase Urine Microscopic RBC Urine Microscopic WBC Ur Squamous Epith Cells Urine Bacteria Ur Culture Indicated? Urine Test Preliminary micro results at discharge 08/01/18 13:03 Urine Culture - Preliminary Urine,Clean Catch Culture is incubating. 08/01/18 14:24 Blood Culture - Preliminary Peripheral Venipuncture Culture is incubating and being continuously monitored for growth. Final report to follow. 08/01/18 14:24 Blood Culture - Preliminary Peripheral Venipuncture Culture is incubating and being continuously monitored for growth. Final report to follow. - Impressions ITS Impressions Abdomen/Pelvis CT 08/01/18 12:44 IMPRESSION: 1. Acute uncomplicated appendicitis. D/ / Galindo Wilson MD / Galindo Wilson MD Interpreting Provider: Galindo Wilson MD - Patient Status Disposition: Home, Self-Care Condition: Good Overall status at discharge: patient is progressing back to baseline - Discharge Instructions Instructions: Laparoscopic Appendectomy (DC) Follow Up With: NONE,PCP [Primary Care Provider] - Sean Bosch MD [Partnered Physician] - - Diet and Activity Diet: advance to your usual diet <Sean Bosch - Last Filed: 08/02/18 16:32> Orders not resulted at time of discharge: Pending orders 08/01/18 14:24 Culture,Blood [BC] Stat 08/01/18 19:26 Surgical Pathology [PTH] Routine Date of Encounter: 08/02/18 General Surgery Exam Initial Vital Signs Temp Pulse Resp BP Pulse Ox 98.6 F 105 18 123/77 97 08/01/18 12:15 08/01/18 12:15 08/01/18 12:15 08/01/18 12:15 08/01/18 12:15 - Hospital Course Hospital course: Ms. Worrell is a 22 year old female - Time Spent with Patient Total time spent providing and/or coordinating discharge services: Date of admission: 08/01/18 15:03 Primary care physician: PCP NONE Labs on day of discharge: Labs from last 24 hours 08/02/18 03:27 WBC 7.0 RBC 3.79 L Hgb 12.1 D Hct 36.5 MCV 96.3 MCH 31.9 MCHC 33.2 RDW 12.0 Plt Count 256 MPV 9.1 L Immature Gran % 0.3 Seg Neutrophils % 92.4 Lymphocytes % 5.6 Monocytes % 1.7 Eosinophils % 0.0 Basophils % 0.0 Neutrophils # 6.5 Lymphocytes # 0.4 L Monocytes # 0.1 Eosinophils # 0.0 Basophils # 0.0 Preliminary micro results at discharge 08/01/18 14:24 Blood Culture - Preliminary Peripheral Venipuncture Culture is incubating and being continuously monitored for growth. Final report to follow. 08/01/18 14:24 Blood Culture - Preliminary Peripheral Venipuncture Culture is incubating and being continuously monitored for growth. Final report to follow. - Impressions ITS Impressions Abdomen/Pelvis CT 08/01/18 12:44 IMPRESSION: 1. Acute uncomplicated appendicitis. D/ / Galindo Wilson MD / Galindo Wilson MD Interpreting Provider: Galindo Wilson MD - Attending Attestation I examined this patient and my medical decision-making was reviewed with the Resident Physician. I agree with the documented findings, disposition and treatment plan as described except to the extent set forth below. I reviewed the above assessment and evaluation and agree with the above plan.
[2018-08-02] MEDS ORDERED: Pantoprazole 40 MG VIAL IVP SCH (09:00)
== END 2018-08-02 09:40 | disposition home or self-care (01) ==
LOC: 3ANU 12:12 → EMEROOARM 12:12 → 3ANU 17:10
PROVIDERS: ADMIT Surgery; ATTEND Surgery